=== PATIENT | male | born 1995 | race African-American/Black ===

== ENCOUNTER 2020-08-27 23:00 | Emergency (ER) | payer OTHER ==
[~2020-08-27] VITALS: Ht 190.5 cm; Wt 63.5 kg
[2020-08-28 01:19] VITALS: BP 150/68
== END 2020-08-28 01:19 | disposition home or self-care (01) ==
LOC: M.ERS 23:00
DX: S01.311A Laceration without foreign body of right ear, initial encounter (principal); S16.1XXA Strain of muscle, fascia and tendon at neck level, initial encounter; F17.200 Nicotine dependence, unspecified, uncomplicated; Z88.2 Allergy status to sulfonamides; V03.99XA Pedestrian with other conveyance injured in collision with car, pick-up truck or van, unspecified whether traffic or nontraffic accident, initial encounter; Y93.89 Activity, other specified; Y92.89 Other specified places as the place of occurrence of the external cause; Y99.8 Other external cause status